=== PATIENT | female | born 1965 | race Caucasian/White ===

== ENCOUNTER 2017-03-05 10:46 | Emergency (ER) | payer OTHER ==
[~2017-03-05] VITALS: Ht 121.9 cm; Wt 38.6 kg
[~2017-03-05 10:46] MED LIST: ACEBUTCAFT PO; ALBU90OI6 INH; ALBU90OI61 INH; AMIT50 PO; BACL10 PO; BACL20; BACL20 PO; BACLOFEN; BELPTAB PO; BUSP5 PO; CARI350 PO; CIPR250 PO; CIPR500 PO; CLON1 PO; CLON2; CLON2 PO; COLC.6 PO; CRUTCH2 USE; Cipro500 MG PO; DICY20 PO; DIPATR PO; DIPH50 PO; DIVA250EC; DOCU100 PO; DOXY100 PO; ESCI20; ESCI20 PO; FAMO10 PO; GABA100 PO; GABA300 PO; GLATIRAMER; HYDACE10B; HYDACE10B PO; HYDACE5325 PO; HYDACE7.5 PO; INDO50 PO; KETO10 PO; LACT10SY PO; LAMO5 PO; LEVFLO250 PO; LEVFLO500; LEVFLO500 PO; LEVO750 PO; LISI5 PO; LITH300C PO; MEDICAL MARIJUANA; MEGE40SU PO; METH10; METH10 PO; METH40 PO; METO50ER PO; METPRE4DP PO; MULVITA PO; MULVITMINA; MULVITMINF PO; NITR100CA PO; OLAN5 PO; ONDA4ODT MM; OXYACE5T PO; POLY17UD PO; PREG25 PO; PROM25 PO; PROM25S PR; Percocet 5-3251 EACH PO; RANI150 PO; RXONDA4ODT MM; RXOXYACE PO; RXPROM25 PO; SUCR1 PO; THC; TRAACE PO; TRAM50 PO; TRAZ50 PO; TYLENOL SINUS; Therapeutic M1 EAC5 PO; Zestril PO; [UNRECOGNIZED DRUG - CODE]; [UNRECOGNIZED DRUG - OTHER]
== END 2017-03-05 11:54 | disposition left against medical advice (07) ==
LOC: ER 10:46
DX: Z53.21 Procedure and treatment not carried out due to patient leaving prior to being seen by health care provider (principal)
CPT/HCPCS: 99281

== ENCOUNTER → 2018-12-13 | Outpatient (CLI) | payer OTHER ==
[2018-12-13 12:24] LABS: BASOPHILS ABSOLUTE AUTO 0.05 K/mm3 (0.00-0.23); BASOPHILS PERCENT AUTO 1 % (0-2); EOSINOPHILS ABSOLUTE AUTO 0.16 K/mm3 (0.00-0.68); EOSINOPHILS PERCENT AUTO 2 % (0-6); Hematocrit 39.2 % (33.0-51.0); Hemoglobin 12.6 g/dL (11.5-16.0); IMMATURE GRAN ABSOLUTE AUTO 0.03 K/mm3 (0.00-0.10); IMMATURE GRAN PERCENT AUTO 0 % (0-1); LYMPHOCYTES ABSOLUTE AUTO 1.78 K/mm3 (0.84-5.20); LYMPHOCYTES PERCENT AUTO 20 % (21-46); MONOCYTES ABSOLUTE AUTO 0.71 K/mm3 (0.16-1.47); MONOCYTES PERCENT AUTO 8 % (4-13); Mean Corpuscular HGB 32.6 pg (26.0-34.0); Mean Corpuscular HGB Conc 32.1 g/dL (31.5-36.5); Mean Corpuscular Volume 102 fL (80-100); Mean Platelet Volume 9.4 fL (9.1-12.4); NEUTROPHILS ABSOLUTE AUTO 6.17 K/mm3 (1.96-9.15); NEUTROPHILS PERCENT AUTO 69 % (41-73); Platelet Count 270 K/mm3 (150-400); RDW Coefficient Variation 13.2 % (11.7-14.2); RDW Standard Deviation 50.1 fL (35.1-46.3); Red Blood Cell Count 3.86 M/mm3 (3.80-5.20)
[2018-12-13 12:39] LABS: Alanine Aminotransfer (ALT/SGP 22 U/L (12-78); Albumin, Blood 3.9 g/dL (3.4-5.0); Albumin/Globulin Ratio 1.2 (0.8-1.8); Alk Phos 79 U/L (50-136); Anion Gap 3 mmol/L (6-16); Aspartate Aminotrans (AST/SGOT 20 U/L (12-37); Bilirubin, Total 0.3 mg/dL (0.1-1.0); Blood Urea Nitrogen 26 mg/dL (8-24); Bun/Creatinine Ratio 60.2 (12.0-20.0); CHOL/HDL RATIO 3.3; CO2, Blood 26 mmol/L (21-32); Calcium, Blood 8.9 mg/dL (8.5-10.1); Chloride, Blood 113 mmol/L (98-108); Cholesterol 192 mg/dL (50-200); Creatinine, Blood 0.43 mg/dL (0.40-1.00); Globulin, Blood 3.3 g/dL (2.2-4.0); Glomerular Filtration Rate >60 (60-); Glucose, Blood 88 mg/dL (70-99); HDL Cholesterol 59 mg/dL (>39); Low Density Lipoprotein Chol 115 mg/dL (0-110); Potassium, Blood 3.8 mmol/L (3.5-5.5); Sodium, Blood 142 mmol/L (136-145); Total Protein, Blood 7.2 g/dL (6.4-8.2); Triglycerides 88 mg/dL (30-160); Very Low Density Lipoprot Chol 17 mg/dL (6-32)
== END | disposition home or self-care (01) ==
LOC: LAB 08:50 → LAB SHORT 08:50
PROVIDERS: Physician Assistant
DX: Z13.220 Encounter for screening for lipoid disorders (principal); D53.9 Nutritional anemia, unspecified
CPT/HCPCS: 80053; 80061; 85025

== ENCOUNTER 2020-01-04 18:14 | Emergency (ER) | payer OTHER ==
[~2020-01-04] VITALS: Ht 142.2 cm; Wt 39.5 kg
[2020-01-04 21:10] LABS: BASOPHILS ABSOLUTE AUTO 0.05 K/mm3 (0.00-0.23); BASOPHILS PERCENT AUTO 1 % (0-2); EOSINOPHILS ABSOLUTE AUTO 0.12 K/mm3 (0.00-0.68); EOSINOPHILS PERCENT AUTO 2 % (0-6); Hematocrit 40.8 % (33.0-51.0); IMMATURE GRAN ABSOLUTE AUTO 0.01 K/mm3 (0.00-0.10); IMMATURE GRAN PERCENT AUTO 0 % (0-1); LYMPHOCYTES ABSOLUTE AUTO 2.48 K/mm3 (0.84-5.20); LYMPHOCYTES PERCENT AUTO 32 % (21-46); MONOCYTES ABSOLUTE AUTO 0.65 K/mm3 (0.16-1.47); MONOCYTES PERCENT AUTO 9 % (4-13); Mean Corpuscular HGB 32.7 pg (26.0-34.0); Mean Corpuscular HGB Conc 31.9 g/dL (31.5-36.5); Mean Corpuscular Volume 103 fL (80-100); NEUTROPHILS ABSOLUTE AUTO 4.37 K/mm3 (1.96-9.15); NEUTROPHILS PERCENT AUTO 57 % (41-73); Platelet Count 337 K/mm3 (150-400); RDW Coefficient Variation 13.8 % (11.7-14.2); RDW Standard Deviation 52.9 fL (35.1-46.3); Red Blood Cell Count 3.97 M/mm3 (3.80-5.20); White Blood Cell Count 7.68 K/mm3 (4.00-11.30)
[2020-01-04 21:28] LABS: Alanine Aminotransfer (ALT/SGP 22 U/L (12-78); Albumin/Globulin Ratio 1.1 (0.8-1.8); Alk Phos 82 U/L (50-136); Anion Gap 3 mmol/L (6-16); Aspartate Aminotrans (AST/SGOT 21 U/L (12-37); Bilirubin, Total 0.2 mg/dL (0.1-1.0); Blood Urea Nitrogen 17 mg/dL (8-24); Bun/Creatinine Ratio 28.8 (12.0-20.0); CO2, Blood 27 mmol/L (21-32); Calcium, Blood 9.3 mg/dL (8.5-10.1); Chloride, Blood 111 mmol/L (98-108); Creatinine, Blood 0.59 mg/dL (0.40-1.00); Globulin, Blood 3.8 g/dL (2.2-4.0); Glomerular Filtration Rate >60 (60-); Glucose, Blood 77 mg/dL (70-99); Potassium, Blood 4.1 mmol/L (3.5-5.5); Sodium, Blood 141 mmol/L (136-145); Total Protein, Blood 7.8 g/dL (6.4-8.2); Troponin I <0.015 ng/mL (0.000-0.040)
== END 2020-01-04 21:27 | disposition left against medical advice (07) ==
LOC: ER 18:14
PROVIDERS: Emergency Medicine
DX: R03.0 Elevated blood-pressure reading, without diagnosis of hypertension (principal); Z53.21 Procedure and treatment not carried out due to patient leaving prior to being seen by health care provider
CPT/HCPCS: 36415; 80053; 84484; 85025; 93005; 93010

== ENCOUNTER 2021-03-10 03:12 | Emergency (ER) | payer OTHER ==
[~2021-03-10] VITALS: Ht 142.2 cm; Wt 39.5 kg
[2021-03-10] MEDS ORDERED: NEURONTIN300 MG PO (03:19)
[2021-03-10] MEDS ORDERED: CLONAZEPAM2 MG PO (03:19)
[2021-03-10 03:45] LABS: BASOPHILS ABSOLUTE AUTO 0.04 K/mm3 (0.00-0.23); BASOPHILS PERCENT AUTO 1 % (0-2); EOSINOPHILS PERCENT AUTO 0 % (0-6); Hematocrit 47.6 % (33.0-51.0); Hemoglobin 16.2 g/dL (11.5-16.0); Mean Corpuscular HGB 33.1 pg (26.0-34.0); Mean Corpuscular Volume 97 fL (80-100); Mean Platelet Volume 9.5 fL (9.1-12.4); Platelet Count 201 K/mm3 (150-400); RDW Coefficient Variation 12.8 % (11.7-14.2); RDW Standard Deviation 46.5 fL (35.1-46.3); White Blood Cell Count 7.84 K/mm3 (4.00-11.30)
[2021-03-10 03:46] LABS: IMMATURE GRAN ABSOLUTE AUTO 0.03 K/mm3 (0.00-0.10); IMMATURE GRAN PERCENT AUTO 0 % (0-1); LYMPHOCYTES ABSOLUTE AUTO 1.23 K/mm3 (0.84-5.20); LYMPHOCYTES PERCENT AUTO 16 % (21-46); MONOCYTES ABSOLUTE AUTO 0.85 K/mm3 (0.16-1.47); MONOCYTES PERCENT AUTO 11 % (4-13); NEUTROPHILS ABSOLUTE AUTO 5.69 K/mm3 (1.96-9.15); NEUTROPHILS PERCENT AUTO 73 % (41-73)
[2021-03-10 03:52] LABS: Source, Urine Clean Catch
[2021-03-10 03:57] LABS: Alanine Aminotransfer (ALT/SGP 72 U/L (12-78); Albumin, Blood 3.9 g/dL (3.4-5.0); Albumin/Globulin Ratio 0.9 (0.8-1.8); Alk Phos 82 U/L (50-136); Anion Gap 12 mmol/L (6-16); Aspartate Aminotrans (AST/SGOT 77 U/L (12-37); Bilirubin, Total 0.5 mg/dL (0.1-1.0); Blood Urea Nitrogen 35 mg/dL (8-24); Bun/Creatinine Ratio 48.7 (12.0-20.0); CO2, Blood 15 mmol/L (21-32); Calcium, Blood 9.4 mg/dL (8.5-10.1); Chloride, Blood 109 mmol/L (98-108); Creatinine, Blood 0.72 mg/dL (0.40-1.00); Globulin, Blood 4.3 g/dL (2.2-4.0); Glomerular Filtration Rate >60 (60-); Glucose, Blood 160 mg/dL (70-99); Potassium, Blood 4.4 mmol/L (3.5-5.5); Sodium, Blood 136 mmol/L (136-145); Total Protein, Blood 8.2 g/dL (6.4-8.2)
[2021-03-10 04:02] LABS: Bilirubin, Urine Neg (Neg); Blood, Urine 3+ (Neg); Glucose Qualitative, Urine Neg (Neg); Ketones, Urine Neg (Neg); Leukocyte Esterase, Urine 2+ (Neg); Nitrite, Urine Neg (Neg); Protein, Urine 3+ (Neg); Urobilinogen, Urine NORM (Normal)
[2021-03-10 04:15] LABS: Influenza A, PCR NEGATIVE (NEGATIVE); Influenza B, PCR NEGATIVE (NEGATIVE); Resp Syncytial Virus, PCR NEGATIVE (NEGATIVE)
[2021-03-10 04:17] LABS: Appearance, Urine Hazy (Clear); Color, Urine Yellow (P-Yellow)
[2021-03-10 04:21] LABS: SARS-Cov-2 (COVID-19) PCR, MMC POSITIVE (NEGATIVE)
[2021-03-10 04:31] LABS: Amorphous Light (0-Heavy); Bacteria Many /hpf; Mucus Light (0-Heavy); Red Blood Cells, Urine 0-2 /hpf (0-2); Squamous Epithelial Cells Rare /hpf (Few); White Blood Cells, Urine TNTC /hpf (0-5)
[2021-03-10] MEDS ORDERED: ONDA4ODT MM (06:39)
[2021-03-10] MEDS ORDERED: CEPH500 PO (06:39)
== END 2021-03-10 08:05 | disposition home or self-care (01) ==
LOC: ER 03:12
PROVIDERS: Student in an Organized Health Care Education/Training Program
DX: U07.1 COVID-19 (principal); N39.0 Urinary tract infection, site not specified; I10 Essential (primary) hypertension; Z88.0 Allergy status to penicillin; Z88.2 Allergy status to sulfonamides; Z88.1 Allergy status to other antibiotic agents; Z91.040 Latex allergy status; Z88.5 Allergy status to narcotic agent
CPT/HCPCS: 0241U; 36415; 51701; 80053; 81001; 85025; 87077; 87086; 87186; 96374-59; 96375-59; 96376-59; 99284-25; J0696; J2405

== ENCOUNTER 2022-02-23 10:03 | Emergency (ER) | payer OTHER ==
[~2022-02-23] VITALS: Ht 144.8 cm; Wt 54.4 kg
[~2022-02-23 10:03] MED LIST changes: +CEPH500 PO; +CLONAZEPAM2 MG PO; +NEURONTIN300 MG PO
[2022-02-23] MEDS ORDERED: CYCL10 PO (10:12)
[2022-02-23] MEDS ORDERED: OMEP20ER PO (10:12)
[2022-02-23] MEDS ORDERED: LISI20 PO (10:12)
[2022-02-23] MEDS ORDERED: OLAN10A MM (10:12)
[2022-02-23] MEDS ORDERED: CELEXA10 MG PO (10:13)
[2022-02-23 10:49] LABS: Albumin, Blood 3.7 g/dL (3.4-5.0); Albumin/Globulin Ratio 1.1 (0.8-1.8); Bilirubin, Total 0.2 mg/dL (0.1-1.0); Bun/Creatinine Ratio 39.9 (12.0-20.0); Calcium, Blood 8.7 mg/dL (8.5-10.1); Creatinine, Blood 0.53 mg/dL (0.40-1.00); Globulin, Blood 3.4 g/dL (2.2-4.0); Potassium, Blood 4.1 mmol/L (3.5-5.5); Total Protein, Blood 7.1 g/dL (6.4-8.2)
[2022-02-23 10:56] LABS: BASOPHILS ABSOLUTE AUTO 0.03 K/mm3 (0.00-0.23); BASOPHILS PERCENT AUTO 0 % (0-2); EOSINOPHILS ABSOLUTE AUTO 0.05 K/mm3 (0.00-0.68); EOSINOPHILS PERCENT AUTO 1 % (0-6); Hematocrit 39.1 % (33.0-51.0); Hemoglobin 13.1 g/dL (11.5-16.0); IMMATURE GRAN ABSOLUTE AUTO 0.04 K/mm3 (0.00-0.10); IMMATURE GRAN PERCENT AUTO 0 % (0-1); LYMPHOCYTES ABSOLUTE AUTO 1.15 K/mm3 (0.84-5.20); LYMPHOCYTES PERCENT AUTO 12 % (21-46); MONOCYTES ABSOLUTE AUTO 0.56 K/mm3 (0.16-1.47); MONOCYTES PERCENT AUTO 6 % (4-13); Mean Corpuscular HGB 32.8 pg (26.0-34.0); Mean Corpuscular HGB Conc 33.5 g/dL (31.5-36.5); Mean Corpuscular Volume 98 fL (80-100); Mean Platelet Volume 9.2 fL (9.1-12.4); NEUTROPHILS ABSOLUTE AUTO 7.84 K/mm3 (1.96-9.15); NEUTROPHILS PERCENT AUTO 81 % (41-73); Platelet Count 240 K/mm3 (150-400); RDW Coefficient Variation 12.5 % (11.7-14.2); RDW Standard Deviation 45.1 fL (35.1-46.3); Red Blood Cell Count 3.99 M/mm3 (3.80-5.20); White Blood Cell Count 9.67 K/mm3 (4.00-11.30)
[2022-02-23] MEDS ORDERED: MEDROL4 M1 PO (13:16)
== END 2022-02-23 14:42 | disposition home or self-care (01) ==
LOC: ER 10:03
PROVIDERS: Emergency Medicine
DX: G35 Multiple sclerosis (principal); I10 Essential (primary) hypertension; F17.210 Nicotine dependence, cigarettes, uncomplicated; Z88.0 Allergy status to penicillin; Z88.2 Allergy status to sulfonamides; Z88.8 Allergy status to other drugs, medicaments and biological substances; Z91.040 Latex allergy status; Z88.5 Allergy status to narcotic agent; Z79.899 Other long term (current) drug therapy
CPT/HCPCS: 36415; 70450; 80053; 85025; 93005; 93010; J1100; P9612

== ENCOUNTER 2022-02-25 12:40 | Inpatient (IN) | payer OTHER ==
[~2022-02-25] VITALS: Ht 152.4 cm; Wt 48.3 kg
[~2022-02-25 12:40] MED LIST changes: +CELEXA10 MG PO; +CYCL10 PO; +MEDROL4 M1 PO; +OLAN10A PO; +OMEP20ER PO; +ZESTRIL40 M1 PO
[2022-02-25 13:36] LABS: Source, Urine Foley catheter
[2022-02-25 13:39] LABS: Appearance, Urine Cloudy (Clear); Bilirubin, Urine Neg (Neg); Blood, Urine 2+ (Neg); Color, Urine Yellow (P-Yellow); Glucose Qualitative, Urine Neg (Neg); Ketones, Urine Neg (Neg); Leukocyte Esterase, Urine Neg (Neg); Nitrite, Urine Neg (Neg); Protein, Urine 2+ (Neg); Specific Gravity, Urine 1.015 (1.003-1.022); Urobilinogen, Urine NORM (Normal)
[2022-02-25 14:08] LABS: Bacteria Many /hpf; Hyaline Casts 0-2 /lpf (0-2); Squamous Epithelial Cells Mod /hpf (Few); Triple Phosphate Crystals Many /hpf
[2022-02-25 15:29] LABS: BASOPHILS ABSOLUTE AUTO 0.02 K/mm3 (0.00-0.23); BASOPHILS PERCENT AUTO 0 % (0-2); EOSINOPHILS PERCENT AUTO 0 % (0-6); Hematocrit 46.6 % (33.0-51.0); Hemoglobin 15.3 g/dL (11.5-16.0); IMMATURE GRAN ABSOLUTE AUTO 0.04 K/mm3 (0.00-0.10); IMMATURE GRAN PERCENT AUTO 0 % (0-1); LYMPHOCYTES ABSOLUTE AUTO 0.89 K/mm3 (0.84-5.20); LYMPHOCYTES PERCENT AUTO 7 % (21-46); MONOCYTES ABSOLUTE AUTO 0.55 K/mm3 (0.16-1.47); MONOCYTES PERCENT AUTO 5 % (4-13); Mean Corpuscular HGB 32.2 pg (26.0-34.0); Mean Corpuscular HGB Conc 32.8 g/dL (31.5-36.5); Mean Corpuscular Volume 98 fL (80-100); Mean Platelet Volume 9.2 fL (9.1-12.4); NEUTROPHILS ABSOLUTE AUTO 10.69 K/mm3 (1.96-9.15); NEUTROPHILS PERCENT AUTO 88 % (41-73); Platelet Count 272 K/mm3 (150-400); RDW Standard Deviation 46.3 fL (35.1-46.3); Red Blood Cell Count 4.75 M/mm3 (3.80-5.20); White Blood Cell Count 12.19 K/mm3 (4.00-11.30)
[2022-02-25 15:58] LABS: Albumin, Blood 4.4 g/dL (3.4-5.0); Albumin/Globulin Ratio 1.1 (0.8-1.8); Bilirubin, Total 0.4 mg/dL (0.1-1.0); Bun/Creatinine Ratio 44.3 (12.0-20.0); Calcium, Blood 9.9 mg/dL (8.5-10.1); Creatinine, Blood 0.66 mg/dL (0.40-1.00); Globulin, Blood 4.1 g/dL (2.2-4.0); Potassium, Blood 4.2 mmol/L (3.5-5.5); Total Protein, Blood 8.5 g/dL (6.4-8.2)
[2022-02-25 23:02] LABS: CHOL/HDL RATIO 5.3; Cholesterol 233 mg/dL (50-200); HDL Cholesterol 44 mg/dL (>39); LDL/HDL RATIO 3.8; Low Density Lipoprotein Chol 165 mg/dL (0-110); Triglycerides 119 mg/dL (30-160); Very Low Density Lipoprot Chol 23 mg/dL (6-32)
[2022-02-26 04:11] LABS: BASOPHILS ABSOLUTE AUTO 0.02 K/mm3 (0.00-0.23); BASOPHILS PERCENT AUTO 0 % (0-2); EOSINOPHILS ABSOLUTE AUTO 0.01 K/mm3 (0.00-0.68); EOSINOPHILS PERCENT AUTO 0 % (0-6); Hematocrit 40.8 % (33.0-51.0); Hemoglobin 13.9 g/dL (11.5-16.0); IMMATURE GRAN ABSOLUTE AUTO 0.05 K/mm3 (0.00-0.10); IMMATURE GRAN PERCENT AUTO 0 % (0-1); LYMPHOCYTES ABSOLUTE AUTO 0.77 K/mm3 (0.84-5.20); LYMPHOCYTES PERCENT AUTO 5 % (21-46); MONOCYTES ABSOLUTE AUTO 0.92 K/mm3 (0.16-1.47); MONOCYTES PERCENT AUTO 6 % (4-13); Mean Corpuscular HGB 32.9 pg (26.0-34.0); Mean Corpuscular HGB Conc 34.1 g/dL (31.5-36.5); Mean Corpuscular Volume 97 fL (80-100); Mean Platelet Volume 9.1 fL (9.1-12.4); NEUTROPHILS PERCENT AUTO 88 % (41-73); Platelet Count 267 K/mm3 (150-400); RDW Coefficient Variation 13.2 % (11.7-14.2); Red Blood Cell Count 4.23 M/mm3 (3.80-5.20); White Blood Cell Count 14.67 K/mm3 (4.00-11.30)
[2022-02-26 04:26] LABS: Calcium, Blood 9.6 mg/dL (8.5-10.1); Creatinine, Blood 0.71 mg/dL (0.40-1.00)
--- NOTE | 2022-02-26 06:04 | NUR ---
SHIFT SUMMARY NONVERBAL, RESPONDS TO VERBAL AND PAINFUL STIMULI. R. ARM CONTRACTURE. BRUISING NOTED T/O BUE/BLE. SPO2 >92% ON RA. TELE ST 110-120S. HYPERTENSIVE T/O SHIFT, PRN HYDRALAZINE GIVEN FOR SYSTOLIC GREATER THAN 170 PER ORDER. PT UNABLE TO MANAGE SECRETIONS, Q2 AND PRN ORAL CARE. RIVERA PATENT AND DRAINING CLEAR YELLOW URINE. BED IN LOWEST POSITION WITH CALL LIGHT IN REACH. WILL CONTINUE TO MONITOR AND REPORT TO ONCOMING RN.
[2022-02-26] MEDS ORDERED: BUSP10 PO (09:22)
[2022-02-26] MEDS ORDERED: IBUP400 PO (09:25)
--- NOTE | 2022-02-26 10:11 | NUR ---
AM NOTE: PATIENT NONVERBAL AT THIS TIME. NOT FOLLOWING MOST COMMANDS. PUPILS REACTIVE. TRACKING FOR BRIEF MOMENTS. NO MOVEMENT TO BLE. LEFT HAND/ARM WITH OCCASIONAL MOVEMENTS. ABLE TO MANAGER BIOSTATISTICS VERY WEAKLY WITH LEFT SIDE. RIGHT ARM/HAND CONTRACTURE WITH STIFFNESS. NOT ABLE TO SHAKE HEAD YES OR NO. ON ROOM AIR, LUNGS SOUNDING COARSE WITH OCCASIONAL MOIST COUGH. SUCTIONING NEEDED. Q4 ORAL CARE. TELE SHOWING SINUS TACH WITH HR 110-120'S. BP STABLE. NO SIGNS OF EDEMA. LR INFUSING AT 50 ML/HR PER EMAR. SPEECH THERAPY ORDERS IN PLACE. WILL ATTEMPT TO SEE THIS AFTERNOON. RIVERA CATH IN PLACE WITH CLEAR/YELLOW URINE WITH SMALL AMOUNTS OF SEDIMENT. CATH CARE COMPLETED THIS AM. ATTENDS IN PLACE. SKIN OVERALL C/D/I. SCATTERED BRUISING AND HEALED SCARS. REDNESS TO BILATERAL FEET/TOES. SPOKE WITH CYNDIE IN PHONE THIS AM AND PROVIDED UPDATE. STATES PATIENT IS NORMALLY FAIRLY IND AT HOME, WALKING AND DOING MOST ADL'S. PHONE NUMBER GIVEN TO DR. BISHOP FOR UPDATE. MED REC COMPLETED WITH . Q2 TURNS. BEDREST AT THIS TIME.
--- NOTE | 2022-02-26 10:48 | NUR ---
CALL PLACED TO CYNDIE TO ASK IF HE WAS PLANNING ON VISITING TODAY. EXPRESSED THAT HE WAS TRYING TO GET RIDE IN TO VISIT. THIS RN EXPLAINED CVA AND PATIENT STATUS WELL PALLIATIVE CARE NURSES. WILLING TO TALK WITH PALLIATIVE CARE. STATES HIM AND HIS HAVE NOT HAD PRIOR CONVERSATIONS ABOUT WHAT TYPE OF CARE/TREATMENTS SHE WOULD WANT IF THIS WHERE TO HAPPEN. STATES PATIENT HAS TWO SISTERS (SHARON AND KRYSTLE) AND A FOSTER MOM (ЕКАТЕРИНА) THAT ARE ALL AWARE OF WHAT HAS HAPPENED AND THAT PATIENT IS IN [facility]OPSITAL. PALLIATIVE CARE TEAM CALLED AND THIS RN SPOKE WITH YOANDY AND PROVIDED UPDATE ON PATIENT SITUATION AND SCENERIO. PLAN FOR THIS RN TO CALL YOANDY OR DONNY WHEN ARRIVES. SPEECH THERAPY TO SEE PATIENT AROUND 1330.
--- NOTE | 2022-02-26 15:08 | NUR ---
CALEB CAREGIVER FROM [facility] CALLED AND UPDATE PROVIDED. CALEB STATES PATIENT IS NORMALLY VERY OUTGOING AND ALERT. NORMALLY HANGSOUT WITH DOGS AT HOME AND IS VERY IND. STATES SHE DRINKS ALOT OF COFFEE AND SMOKES WEED BUT DOES NOT DRINK ALCOHOL. CALEB ALSO STATES PATIENT RECEIVES 20 HOURS OF IN HOME CAREGIVING THAT THEY SPREAD OUT ACROSS 6 DAYS. PHONE TO REACH [facility] IS [phone]. SPEECH THERAPY IN TO SEE PATIENT. FAILED SPEECH EVAL. REMAINS NPO. CALL PLACED TO DR. BISHOP TO UPDATE. NO NEW ORDERS FOR THIS RN TO PLACE. LR INCREASED TO 75ML/HR. ECHO BEING DONE AT THIS TIME. MICRO CALLED THIS RN TO REPORT +BLOOD CULTURE. REPORTED TO DR. BISHOP. NO NEW ORDERS FOR THIS RN.
--- NOTE | 2022-02-26 18:05 | NUR ---
SHIFT SUMMARY: NO ACUTE CHANGES THROUHGOUT SHIFT. PATIENT SMILING MORE AND RIGTH FACIAL DROOP NOTICED MORE THROUGHOUT DAY WITH FACIAL EXPRESSIONS. USING LEFT SIDE VERY LITTLE. WEAK OVERALL. MOVING HEAD/NECK AND LEFT EXTREMITITES. PT/OT TODAY. STILL NONVERBAL, OCCASIONALLY MAKING NOISES. REMAINS ON ROOM AIR. VITAL STABLE. TELE CONTINUES TO SHOW ST. SBP 140-160'S. LEVAQUIN INFUSING AT THIS TIME. LR AT 75ML/HR. RIVERA CATH DRAINING CLEAR/YELLOW URINE. DRAINED 675ML AT START OF SHIFT THIS AM. VERY MINIMAL OUTPUT SINCE. REMAINS NPO. NO BM. ATTENDS IN PLACE. CALLED 3 TIMES TODAY TO UPDATE, SEE PREVIOUS NOTES. SPOKE WITH CAREGIVER CALEB WELL. PALLIATIVE CARE BY AND UPDATED ON CONVERSATIONS WITH . NOT IN TO VISIT THIS SHIFT. Q4 ORAL CARE AND NEEDED. SUCTIONING THICK YELLOW SPUTUM. CALL LIGHT IN REACH. BED ALARM IN PLACE.
--- NOTE | 2022-02-26 22:21 | NUR ---
ASSUMPTION OF CARE THIS RN ASSUMED CARE OF PATIENT AT 1900. REPORT TAKEN FROM OTTO DIAZ. PATIENT ALERT AND APPEARS TO BE ORIENTED TO SELF. NONVERBAL AND UNABLE TO ANSWER QUESTIONS BUT DID APPEAR TO SLOWLY NOD HEAD YES/NO TO SIMPLE QUESTIONS. FOLLOWING SIMPLE COMMANDS. HTN NOTED AFTER SHIFT CHANGE; MEDICATED PER EMAR WITH GOOD RESULTS; SBP 130-140'S AT THIS TIME. ST ON THE MONITOR WITH HR 110-120'S. AFEBRILE. ON RA WITH SPO2 >92%. RIVERA CATHETER PATENT AND DRAINING TO GRAVITY. Q2HR REPOSITIONING. RIGHT DEFICITS AND RIGHT FACIAL DROOP NOTED. PATIENT IS ABLE TO MOVE LEFT EXTREMETIES BUT IS WEAK AND SLOW WITH MOVEMENTS. NPO AT THIS TIME. BED IN LOWEST POSITION AND CALL LIGHT WITHIN REACH. THIS RN WILL CONTINUE TO MONITOR AND PROVIDE INERVENTIONS NEEDED/ORDERED. SEE ASSESSMENT.
[2022-02-27 03:41] LABS: BASOPHILS ABSOLUTE AUTO 0.01 K/mm3 (0.00-0.23); BASOPHILS PERCENT AUTO 0 % (0-2); EOSINOPHILS PERCENT AUTO 0 % (0-6); Hematocrit 39.7 % (33.0-51.0); Hemoglobin 12.9 g/dL (11.5-16.0); IMMATURE GRAN ABSOLUTE AUTO 0.04 K/mm3 (0.00-0.10); IMMATURE GRAN PERCENT AUTO 0 % (0-1); LYMPHOCYTES ABSOLUTE AUTO 0.97 K/mm3 (0.84-5.20); LYMPHOCYTES PERCENT AUTO 8 % (21-46); MONOCYTES ABSOLUTE AUTO 1.16 K/mm3 (0.16-1.47); MONOCYTES PERCENT AUTO 10 % (4-13); Mean Corpuscular HGB 32.3 pg (26.0-34.0); Mean Corpuscular HGB Conc 32.5 g/dL (31.5-36.5); Mean Corpuscular Volume 99 fL (80-100); Mean Platelet Volume 9.3 fL (9.1-12.4); NEUTROPHILS ABSOLUTE AUTO 9.84 K/mm3 (1.96-9.15); NEUTROPHILS PERCENT AUTO 82 % (41-73); Platelet Count 231 K/mm3 (150-400); RDW Coefficient Variation 13.8 % (11.7-14.2); RDW Standard Deviation 50.3 fL (35.1-46.3); White Blood Cell Count 12.02 K/mm3 (4.00-11.30)
[2022-02-27 04:17] LABS: Albumin, Blood 3.4 g/dL (3.4-5.0); Anion Gap 7 mmol/L (6-16); Blood Urea Nitrogen 36 mg/dL (8-24); Bun/Creatinine Ratio 53.6 (12.0-20.0); CO2, Blood 16 mmol/L (21-32); Calcium, Blood 9.3 mg/dL (8.5-10.1); Chloride, Blood 130 mmol/L (98-108); Creatinine, Blood 0.67 mg/dL (0.40-1.00); Glomerular Filtration Rate 101 (60-); Glucose, Blood 120 mg/dL (70-99); Phosphorus, Blood 2.9 mg/dL (2.5-4.9); Potassium, Blood 3.7 mmol/L (3.5-5.5); Sodium, Blood 153 mmol/L (136-145)
--- NOTE | 2022-02-27 04:46 | NUR ---
SHIFT SUMMARY NO ACUTE EVENTS OVERNIGHT. PATIENT HAS BEEN ABLE TO USE CALL LIGHT/REMOTE DURING THIS SHIFT. APPEARS TO OCCASIONALLY NOD YES/NO TO SIMPLE QUESTIONS. CONTINUES TO BE NONVERBAL. BP STABLE AT THIS TIME; MEDICATING PER EMAR FOR HTN. LR INFUSING AT 75MLS/HR. REPOSITIONING Q2HRS. ATTENDS DRY. RIVERA CATHETER DRAINING VIA GRAVITY. ORAL CARE DONE Q4HRS. BED IN LOWEST POSITION AND CALL LIGHT WITHIN REACH. SEE ASSESSMENT AND PREVIOUS NOTE. THIS RN WILL CONTINUE TO MONITOR UNTIL SHIFT CHANGE AT 0700.
[2022-02-27 08:24] LABS: Source, Urine Foley catheter
[2022-02-27 08:45] LABS: Appearance, Urine Clear (Clear); Bilirubin, Urine Neg (Neg); Blood, Urine 2+ (Neg); Color, Urine Yellow (P-Yellow); Glucose Qualitative, Urine Neg (Neg); Ketones, Urine 2+ (Neg); Leukocyte Esterase, Urine Neg (Neg); Nitrite, Urine Neg (Neg); Protein, Urine 2+ (Neg); Urobilinogen, Urine NORM (Normal)
[2022-02-27 09:03] LABS: Bacteria Rare /hpf; Squamous Epithelial Cells Rare /hpf (Few)
--- NOTE | 2022-02-27 09:27 | NUR ---
AM NOTE: PATIENT ALERT THIS AM, OPENING EYES UPON ENTERING ROOM. SMILING MORE AND STARTING TO USE CALL LIGHT WITH LEFT HAND. RIGHT FACIAL DROOP. PUPILS EQUAL AND REACTIVE. TRACKING WITH EYES. LEFT SIDED WEAKNESS. Q2 TURNING. ON ROOM AIR, SATING ABOVE 94%. LUNGS SOUNDING COARSE, BUT IMPROVED FROM YESTERDAY. OCCASIONAL MOIST COUGH, SUCTION AT BEDSIDE. Q4 ORAL CARE AND NEEDED. TELE SHOWING SINUS TACH WITH HR 100-120'S. BP ELEVATED THIS AM, PRN HYDRALZINE GIVEN WITH GOOD RELIEF. DOES NOT APPEAR TO BE IN ANY CHEST PAIN/DISCOMFORT. PPP. BOWEL TONES PRESENT. ATTENDS IN PLACE. REMAINS NPO. PLAN FOR SPEECH EVAL TODAY. UPON SHIFT START PATIENT NOTED TO HAVE LARGE WET ATTENDS AND EMPTY RIVERA CATH. BLADDER SCAN DONE AND NEW RIVERA PLACED, DRAINING 800ML. NEW URINE SAMPLE SENT PER PROCLAUREL. DR. BISHOP BY THIS AM. THIS RN UPDATED ON CALLS TO PRIOR DAY, PALLIATIVE CARE AND AM SODIUM LABS. NO NEW ORDERS FOR THIS RN TO PLACE. CALL PLACED TO CYNDIE, PATIENT . PROVIDED UPDATE. CYNDIE STATES HE THINKS HE HAS A RIDE TODAY AND WILL BE ABLE TO COME IN AND VISIT. PLAN FOR CYNDIE TO MEET WITH PALLIATIVE CARE UPON ARRIVAL AND IF CYNDIE IS NOT ABLE TO COME IN, PALLIATIVE CARE TO CALL .
--- NOTE | 2022-02-27 10:22 | NUR ---
Case conference and review of EMR with plan to meet with when he arrives to visit today. RN to contact me upon his arrival to room.
--- NOTE | 2022-02-27 13:44 | NUR ---
[place] AT BEDSIDE. PALLIATIVE CARE RN RANDAL CALLED TO UPDATE.
[2022-02-27 14:30] LABS: Base Excess Venous -7.1 mmol/L; Bicarbonate Venous 19.8 mmol/L (24.0-30.0); PCO2 Venous 25.9 mmHg (38-42); pH Blood Venous 7.43 (7.34-7.37)
--- NOTE | 2022-02-27 14:35 | NUR ---
DR. BISHOP CALLED TO UPDATE ON VBG RESULTS. NO NEW ORDERS FOR THIS RN TO PLACE. AND PALLIATIVE CARE RN RANDAL AT BEDSIDE AT THIS TIME. 1400 BP ELEVATED, PRN HYDRALAZINE GIVEN.
--- NOTE | 2022-02-27 14:39 | NUR ---
[employer] CALLED, FOR UPDATE. PERMISSION FROM PATIENT TO SPEAK WITH THEM. UPDATE PROVIDED.
--- NOTE | 2022-02-27 14:55 | NUR ---
I met with pt's SO at the bedside. Pt is smiling at him at times, able to track and make eye contact but is nonverbal and is not indicating yes/no with head movement either. SO Christopher attempted to have pt squeeze his hand in response to some of his questions but pt was not able to. SO had contacted a close friend to confirm what he understood from Susan previously, that she would not want "life support" to prolong her life. We reviewed what life support meant and other life sustaining treatmens. Christopher is clear that he believes she would not want CPR or intubation but he wants Susan to be able to tell us that. He is struggling with decision making currently. He was clear that she would not want termite treater helper tube feeding but thought she would be agreeable to short term IV or NG feedings while recovering from an illness. Pt is normally ambulatory, conversant and able to swallow and eat. 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 Christopher states that she has daily chronic pain and is prescribed gabapentin and flexeril as part of her daily medication regime. She is not currently demonstrating nonverbal indicators of mod to severe pain but does not appear completely comfortable either. I could not get any reliable response with conversation. I planned with Christopher to reassess tomorrow and talk to him again by phone for update and ongoing conversation re: advanced care planning. He does not drive and will not be able to come in to visit daily. If this is pt's new baseline, she will need much more care in the home or possibly placement. Discussed pt status with CM earlier today also. Reviewed my conversation with pt/SO with her RN after my visit.
--- NOTE | 2022-02-27 18:05 | NUR ---
SHIFT SUMMARY: NO ACUTE CHANGES, SEE PREVIOUS NOTES THROUGHOUT DAY. PATIENT REMAINS MEDICAL STATUS WITH NO TELE. CYNDIE IN AND ABLE TO MEET WITH PALLIATIVE CARE. THIS RN SPOKE WITH KRYSTLE, PATIENT SISTER ON PHONE AND PROVIDED UPDATE. ORAL CARE Q4. ABX INFUSED THIS SHIFT. D5 INFUSING PER EMAR. Q2 TURNING. MEDICATED X2 WITH PRN HYDRALAZINE. PATIENT WARM TO TOUCH THIS EVENING BUT NO TEMP. RIVERA CATH REMAINS PATENT AND DRAINING CLEAR/YELLOW URINE. CONTINUES TO SMILE. WILL CONTINUE TO MONITOR AND REPORT OFF.
--- NOTE | 2022-02-27 21:07 | NUR ---
ASSUMPTION OF CARE THIS RN ASSUMED CARE OF PATIENT AT 1900. REPORT TAKEN FROM OTTO DIAZ. PATIENT IS ALERT AND ANSWERING YES/NO QUESTIONS APPROPRIATELY, FOLLOWING SIMPLE COMMANDS, AND APPEARS TO BE ORIENTED TO SELF. PATIENT NONVERBAL BUT SMILING FREQUENTLY AT THIS RN. RIGHT FACIAL DROOP AND RIGHT SIDE DEFICITS NOTED. VITALS STABLE. RIVERA CATHETER DRAINING TO GRAVITY. D5 INFUSING PER EMAR. REPOSITIONING Q2HRS WITH ORAL CARE Q4HRS. BED IN LOWEST POSITION AND CALL LIGHT WITHIN REACH. THIS RN WILL REVIEW CHART AND CONTINUE TO PROVIDE INTERVENTIONS NEEDED/ORDERED DURING THIS SHIFT.
--- NOTE | 2022-02-28 04:53 | NUR ---
GERMAIN ARRIVED FROM [facility] 10 JUST AFTER MIDNIGHT. SHE DISPLAYS NO SIGNS OR SYMPTOMS OF PAIN OR DISCOMFORT. EASILY ASSISTING IN REPOSITIONING WITH THE LEFT SIDE EXTREMITIES. GERMAIN WAS ABLE TO TURN HER HEAD EVER SO SLIGHTLY TO SEE THE PICTURE THAT WENT WITH THE MUSIC ON HER TV. BLOOD PRESSURES WERE SLIGHTLY HIGH, BUT WITHIN PARAMETERS PER LAST NOTE FROM DR PINTO.
[2022-02-28 06:07] LABS: BASOPHILS ABSOLUTE AUTO 0.02 K/mm3 (0.00-0.23); BASOPHILS PERCENT AUTO 0 % (0-2); EOSINOPHILS ABSOLUTE AUTO 0.01 K/mm3 (0.00-0.68); EOSINOPHILS PERCENT AUTO 0 % (0-6); Hematocrit 36.1 % (33.0-51.0); Hemoglobin 11.9 g/dL (11.5-16.0); IMMATURE GRAN ABSOLUTE AUTO 0.04 K/mm3 (0.00-0.10); IMMATURE GRAN PERCENT AUTO 0 % (0-1); LYMPHOCYTES ABSOLUTE AUTO 1.47 K/mm3 (0.84-5.20); LYMPHOCYTES PERCENT AUTO 14 % (21-46); MONOCYTES ABSOLUTE AUTO 1.02 K/mm3 (0.16-1.47); MONOCYTES PERCENT AUTO 10 % (4-13); Mean Corpuscular Volume 100 fL (80-100); Mean Platelet Volume 9.3 fL (9.1-12.4); NEUTROPHILS ABSOLUTE AUTO 8.01 K/mm3 (1.96-9.15); NEUTROPHILS PERCENT AUTO 76 % (41-73); Platelet Count 222 K/mm3 (150-400); RDW Coefficient Variation 13.9 % (11.7-14.2); RDW Standard Deviation 51.3 fL (35.1-46.3); Red Blood Cell Count 3.61 M/mm3 (3.80-5.20); White Blood Cell Count 10.57 K/mm3 (4.00-11.30)
[2022-02-28 06:28] LABS: Anion Gap 5 mmol/L (6-16); Blood Urea Nitrogen 27 mg/dL (8-24); Bun/Creatinine Ratio 46.6 (12.0-20.0); CO2, Blood 20 mmol/L (21-32); Calcium, Blood 8.6 mg/dL (8.5-10.1); Chloride, Blood 124 mmol/L (98-108); Creatinine, Blood 0.58 mg/dL (0.40-1.00); Glomerular Filtration Rate 105 (60-); Glucose, Blood 145 mg/dL (70-99); Phosphorus, Blood 2.4 mg/dL (2.5-4.9); Potassium, Blood 3.4 mmol/L (3.5-5.5); Sodium, Blood 149 mmol/L (136-145)
--- NOTE | 2022-02-28 13:21 | NUR ---
Attempted visit and pt napping at that time, this am. Case conferenced with pt's RN. Awaiting results of ST visit today and understand from RN that pt was able to follow commands and work with PT/OT today. She is able to indicate yes/no if she is hurting. I called and gave update. Reviewed need for nutritional supplementation. He again states he feels that temporary tube feeding would be ok but he would prefer the least invasive option. Discussed that an NG may impair her ability to recover her swallow. Discussed peg tube placement also if recommended by /. He states pt's sister, Mignon, is arriving today from [place]. He is appreciative of this and having her input in regard to medical decision making. I will try to meet with sister today or tomorrow and also assess whether pt can indicate to us what she would want. I would like a family member present with pt also for that discussion so we have a better idea of her understanding and answers.
--- NOTE | 2022-02-28 14:50 | NUR ---
Reviewed pt's current status and afternoon ST visit with ST. Please see ST plan. Reviewed options of peg vs NG/dobhoff if needed. ST states ng/dobhoff would not impair swallow recovery if that option is prefered by family to give pt time to recover and receive adequate nutritional support during stroke recovery. Will cont to follow for support and assist with care planning as pt's status evolves.
--- NOTE | 2022-02-28 18:50 | NUR ---
SHIFT SUMMARY: PATIENT NONVERBAL. MAKE AN EYE CONTACT AND RESPOND TO VERBAL STIMULI. ANSWER TO QUESTIONS BY SQUEEZING THIS RN'S HAND. MILD SENSATION TO R UPPER AND LOWER EXTREMITIES WHEN STROKING THE HANDS AND BOTTOM OF FOOT. LEFT UPPER AND LOWER EXTREMITIES SENSATIONS AND STRENGTH INTACT BUT WEAK. PATIENT WIDE AWAKE TODAY. PARTICIPATE c PT/OT EARLIER THIS AM. ST CAME AND SAW PATIENT THIS PM, STILL NPO. PER ST PLAN TO HAVE BARIUM SWALLOW EVAL ON THURSDAY. PER ST IT'S OKAY FOR PATIENT TO HAVE DOBHOFF PLACEMENT OR TPN/PPN NUTIRIONAL SUPPORT. THIS RN COMMUNICATE c DR. BISHOP. PER DR. BISHOP TO PLAN DOBHOFF PLACEMENT TOMORROW 03/01/22. POWERGLIDE TO GIO INFUSING DEXTROSE 5% AT 75 MLS/HR. RIVERA CATH WAS IRREGATED X1 TODAY. RIVERA PATENT DRAINING TO GRAVITY. VITAL SIGNS REVIEWED. ORAL CARE, SUCTIONED AND REPOSITIONED T/O SHIFT. BED ALARM ON FOR SAFETY. CALL LIGHT IN REACH.
[2022-03-01 05:09] LABS: BASOPHILS ABSOLUTE AUTO 0.02 K/mm3 (0.00-0.23); BASOPHILS PERCENT AUTO 0 % (0-2); EOSINOPHILS ABSOLUTE AUTO 0.08 K/mm3 (0.00-0.68); EOSINOPHILS PERCENT AUTO 1 % (0-6); Hematocrit 39.8 % (33.0-51.0); Hemoglobin 12.8 g/dL (11.5-16.0); IMMATURE GRAN ABSOLUTE AUTO 0.06 K/mm3 (0.00-0.10); IMMATURE GRAN PERCENT AUTO 1 % (0-1); LYMPHOCYTES ABSOLUTE AUTO 1.49 K/mm3 (0.84-5.20); LYMPHOCYTES PERCENT AUTO 13 % (21-46); MONOCYTES ABSOLUTE AUTO 0.83 K/mm3 (0.16-1.47); MONOCYTES PERCENT AUTO 8 % (4-13); Mean Corpuscular HGB 32.1 pg (26.0-34.0); Mean Corpuscular HGB Conc 32.2 g/dL (31.5-36.5); Mean Corpuscular Volume 100 fL (80-100); Mean Platelet Volume 9.6 fL (9.1-12.4); NEUTROPHILS ABSOLUTE AUTO 8.66 K/mm3 (1.96-9.15); NEUTROPHILS PERCENT AUTO 78 % (41-73); Platelet Count 224 K/mm3 (150-400); RDW Coefficient Variation 13.2 % (11.7-14.2); RDW Standard Deviation 49.1 fL (35.1-46.3); Red Blood Cell Count 3.99 M/mm3 (3.80-5.20); White Blood Cell Count 11.14 K/mm3 (4.00-11.30)
[2022-03-01 05:41] LABS: Albumin, Blood 2.9 g/dL (3.4-5.0); Anion Gap 10 mmol/L (6-16); Blood Urea Nitrogen 14 mg/dL (8-24); Bun/Creatinine Ratio 28.5 (12.0-20.0); CO2, Blood 18 mmol/L (21-32); Calcium, Blood 8.4 mg/dL (8.5-10.1); Chloride, Blood 113 mmol/L (98-108); Creatinine, Blood 0.49 mg/dL (0.40-1.00); Glomerular Filtration Rate 109 (60-); Glucose, Blood 124 mg/dL (70-99); Potassium, Blood 3.1 mmol/L (3.5-5.5); Sodium, Blood 141 mmol/L (136-145)
--- NOTE | 2022-03-01 06:54 | NUR ---
GERMAIN WAS MUCH MORE ALERT OVERNIGHT. ABLE TO TURN HER HEAD EVER SO SLIGHTLY TO THE RIGHT. SQUEEZES AND LETS GO WITH HER LEFT HAND TO INDICATE YES OR NO. PATIENT HAD JUST OVER 1000ML CLEAR YELLOW URINE FROM RIVERA CATHETER. HER ONLY DIFFICULTY IS HER HUGE AMOUNT OF SECRETIONS THAT REQUIRE CONSTANT SUCTIONING.
--- NOTE | 2022-03-01 09:00 | NUR ---
PT HERE WITH ISCEMIC STROKE, SOME SMILE GIVEN WITH LEFT MOUTH. SOME TERESA MOVEMENT IN LEFT ARM AND HAND. ABLE TO SCRATCH HEAD. ABLE TO GRANS MY HAND AND SQUEEZE SOME Y/N ANSWERS. RECOGNIZED SISTER WHEN IN ROOM. SISTER STATES SOME IMPROVEMENT IN OVERALL. H/R REG, NO MURMUR NOTED. NO TELE. LUNGS CLEAR, RESP EASY, UNLABORED. DOES NOT APPEAR ABLE TO COUGH AND SWALLOW. SUCTIONING REGULARLY. DISCUSSED ATRPINE DROPS AND SCAPOLAMINE PATCH. DR STATES TO DECIDE IF APPROP. BT HYPO. UNABLE TO TELL ME LAST BM. VOIDS INCONT. TURN Q2. BED IN LOW POSITIOIN, CALL LITE IN REACH, BED ALARM ON FOR SAFETY. UPDATED DR RAY ON K+ LEVEL 3.1
--- NOTE | 2022-03-01 10:30 | NUR ---
Lengthy visit with pt and her sister, Mignon, at bedside. Mignon's number is [phone]. Pt is clearly happy to have sister present and when I arrived, Mignon was hugging Susan for a long time. Mignon lives in [place] and must return now. I reviewed plan of care and status (per and ST notes) with Mignon and asked for her help in confirming what Susan's wishes might be in regard to long/short term tube feeding, life support, code status. , Christopher, had requested that I review all of this with Mignon, to confirm what he felt pt's wishes would be. In agreement with Christopher, Mignon feels that pt would be ok with short term tube feeding but would probably choose not to continue with half-way tube feeding if she were unable to regain swallow after restorative rehab efforts. She states pt would not want to live "dependent on machines" but at this time "would want to give it her best shot". Mignon and I clarified this to mean that at this time, Susan would prefer to remain a full code and pursue full treatment for acute and chronic issues. If time and current treatment indicate that recovery is not possible, pt would not want to remain dependent on a ventilator, want repeated CPR or intermodal truck driver tube feedings. Both Mignon and I directed this conversation and questions to patient, who was awake, alert and maintaining eye contact t/o and indicated as best she could, agreement with Mignon's restating/clarifying pt's wishes. Mignon wanted staff and care managers to know they could call her for assist and support to Christopher for decision making and d/c planning. I asked if she and Christopher could discuss if rehab facilities in [place] would be desireable so that her sister could visit and advocate for pt regularly. does not drive or have regular transportation and has stated this as a barier for him and concern for her being in a facility without having family visits. Sister states she would very much like her sister close by in [place] and that she may even be able to have her come to her home after Rehab if needed. She will discuss both with Susan and Christopher. Contact numbers for nurses, [facility] and train operations manager provided to Mignon for f/u early next week for ongoing planning and coordination of care. Mignon states that Christopher is very overwhelmed and I have noted this in my conversations with him also. He has asked that Mignon be included in d/c planning, care planning and decision making for support to Susan and himself.
--- NOTE | 2022-03-01 14:13 | NUR ---
1000 SISTER IN TO VISIT WITH PT. STATES SHE SEES SOME IMPROVEMENT. ABLE TO MOVE LEFT HAND BETTER. STATES SHE SQUEEZES HAND Y/N WITH SOME SMILE ON LEFT. STATES SHE FEELS SOME BETTER. 1100 CALLED. RELAYED INFO TO HIM FROM SISTER.
--- NOTE | 2022-03-01 18:36 | NUR ---
PT SISTER IN TO SEE THIS AM. STATES SHE FEELS PT SLIGHT IMPROVEMENT. PT IS ABLE TO GRASP HAND AND SQUEEZE TO ANSWER Y/N QUESTIONS. HAS FULL RT SIDE FLACID. NO CHANGES NOTED FOR PT TODAY. SUCTIONED AND TURNED REGULARLY. BED IN LOW POSITIOIN, CALL LITE IN REACH. BED ALARM ON FOR SAFETY
--- NOTE | 2022-03-02 07:22 | NUR ---
VERY LITTLE CHANGE FOR GERMAIN OVERNIGHT. SHE IS STILL VERY SUCTION DEPENDENT FOR HER ONGOING SECRETIONS. SHE GIVES NO INDICATION OF DISCOMFORT, AND IS ACTUALLY ATTEMPTING TO HOLD THE SUCTION TOOTHBRUSH AND ATTEMPTED TO SCRUB HER TEETH ON THE LEFT SIDE. STILL NO BOWEL MOVEMENT. PATIENT REMAINS FLACCID ON THE RIGHT SIDE.
--- NOTE | 2022-03-02 09:00 | NUR ---
PT CALM QUIET, NONVERBAL. OCCATIONALLY WILL TRY UTTER ONE SYLABLE. PER RD RN, 3 DAYS PRIOR SHE WAS ALMOST NONRESPONSIVE AT ALL. SHE CAN SQUEEZE LEFT HAND FOR ANSWERS ON OCCATION. EYES ARE REACTIVE TO LIGHT, RT IS 8, L IS 6, SHE HAS GAZE MOSTLY FROM LIGHTLY LEFT OF CENTER TO FULL LEFT. DOES NOT APPEAR TO LOOK ON RT. SHE ATTEMPTS A SMILE ON LEFT, RT FACE DROOP. MOVES LEFT HAND AND ARM, LEFT LEG AND FOOT. FLACID FULL RT SIDE. H/R REG, NO MURMUR NOTED, NO TELE. LUNGS CLEAR, RESP EASY UNLABORED. ON R.A/ SUCTION REGULARLY, CLOSE TO HOURLY. BT X4 HYPERACTIVE, NO BM LISTED. VOIDS RIVERA CATH. YELLOW FLUID IN COLLECTION BAG. WE TURN Q2, BED IN LOW POSITION, CALL LITE IN REACH, BED ALARM ON FOR SAFETY
--- NOTE | 2022-03-02 17:18 | NUR ---
NURSE NOTE RE CARE: PT SISTER, KRYSTLE CALLED TODAY. [phone]. SHE WAS ALSO IN ROOM WITH PT YESTERDAY. SHE STATES SHE FEELS GERMAIN'S MAY NOT BE CAPABLE OF CARING FOR HER WITH THE NEW CONDITIONS. SISTER, SHE WOULD BE INTERESTED IN DOING WHAT SHE CAN TO HELP. WOULD LIKE TO SEE IF SHE COULD MOVED TO A SENIOR CARE IN [place] SO CAN BE OF ASSISTANCE. SHE WOULD LIKE CONTACT WITH CARE MANAGEMENT AND CARE PLANNERS TO MAKE SURE SHE IS IN THE LOOP TO HELP HER SISTER. I AM LEAVING MESSAGES ON CARE MANAGEMENT AND PALIATIVE CARE. THANK-YOU.
--- NOTE | 2022-03-02 18:25 | NUR ---
PT CALM MOST OF DAY. STILL SMILES ON LEFT SIDE WHEN COME TO ROOM. STILL SQUEEZES HAND, NOT WITH CERTAINTY. UNABLE TO BE SURE IF 1 OR 2 SQUEEZES TO ANSWER Y/N. SOME TIMES CAN POINT, STILL MOVING LEFT ARM AND LEG. NOTICABLY LESS DROOLING AND LESS SUCTIONING TODAY. DR DID CHANGE IVF TODAY . NO OTHER CONCERNS NOTED. BED IN LOW POSITION, CALL LITE IN REACH, BED ALARM ON FOR SAFETY
[2022-03-03 05:51] LABS: Albumin, Blood 2.6 g/dL (3.4-5.0); Albumin/Globulin Ratio 0.7 (0.8-1.8); Bilirubin, Total 0.6 mg/dL (0.1-1.0); Bun/Creatinine Ratio 22.3 (12.0-20.0); Calcium, Blood 8.4 mg/dL (8.5-10.1); Creatinine, Blood 0.45 mg/dL (0.40-1.00); Globulin, Blood 3.6 g/dL (2.2-4.0); Magnesium, Blood 2.1 mg/dL (1.6-2.4); Phosphorus, Blood 2.7 mg/dL (2.5-4.9); Potassium, Blood 3.1 mmol/L (3.5-5.5); Total Protein, Blood 6.2 g/dL (6.4-8.2)
--- NOTE | 2022-03-03 06:22 | NUR ---
GERMAIN WAS VERY ANIMATED IN THE EVENING. SHE WAS MOVING HER LEFT ARM AND LEG BACK AND FORTH IN COMFORTABLE MANNER. THIS RN BEGAN TO WASH HER FACE WITH A WASHCLOTH, I OFFERED IT TO GERMAIN WHO TOOK THE CLOTH AND BEGAN TO WASH HER FACE PRIMARILY ON THE LEFT. SHE BEGAN SCUBBING ON THE RIGHT SIDE WHEN IT WAS SUGGESTED TO HER. GERMAIN STILL HAS SIGNFICANT SECRETIONS THAT NEED ATTENTION HOURLY WITH MOUTH CARE. SKIN INTACT, TURN Q 2 HOURS
--- NOTE | 2022-03-03 16:18 | NUR ---
MET WITH CYNDIE IN ROOM AT PT BEDSIDE. HE REPORTS THAT NOW THAT HE IS HERE AND SEES THE PT, HE WANTS TO TAKE HER HOME ON HOSPICE TO CARE FOR HER. WE DISCUSS OTHER OPTIONS OF SNF OR PT SISTER, KRYSTLE HAS OFFEREED TO TAKE CARE OF THE PT IN HER HOME IN [place]. WE ALSO DISCUSS PT NEEDS AND THAT THE PT WILL NEED 24 HOUR CARE AND HE REPORTS HE CAN PROVIDE THIS. CYNDIE REPORTS THEY LIVE IN A SINGLE WIDE MOBILE HOME AND HAS ROOM FOR A HOSPITAL BED AND ANY OTHER DME THAT IS NEEDED. WE DISCUSS HOSPICE PHILOSOPHY AND WHAT SERVICES THEY PROVIDE AND HE IS AGREEABLE TO THIS. CYNDIE HAS QUESTIONS ABOUT IS THERE ANYTHING ELSE THAT CAN BE DONE SINCE GERMAIN CANNOT SWALLOW, HE ASKS ABOUT A PIC LINE. WE DISCUSSED THAT ANY IV NUTRITTION IS SHORT TERM, A CUSTOMER ACCOUNTS ADVISOR SOLUTION IS PLACING A FEEDING/PEG TUBE. HE VERBALIZES THAT THE PATIENT DOESNT WANT A CUSTOMER ACCOUNTS ADVISOR FEEDING TUBE AND HE WANTS TO HONOR HER WISHES. PROVIDED EDUCATION THAT SINCE PT IS UNABLE TO SAFELY SWALLOW AND NOW ON CC, ALL OF HER SCHEDULED ORAL MEDICATIONS HAVE BEEN STOPPED, AND COMFORT MEDICATION RDERS HAVE BEEN ORDERED TO MANAGE PAIN, ANXIETY, DIFF SLEEPING ETC, AND HE VU. ADVISES CM WILL BE IN LATER TO TALK TO HIM AND HE FABI. UPDATED MK DIAZ ON THIS CONVERSATION.
--- NOTE | 2022-03-03 18:38 | NUR ---
SHIFT SUMMARY- PT IS ALERT, PLESANT AND COOPERATIVE. SHE IS NONVERBAL AFTER CVA. SHE WENT FOR A BARIUM STUDY THIS MORNING. SHE WAS TRANSITIONED TO COMFORT CARE THIS AFTERNOON. AT BEDSIDE THIS SHIFT. HER RIVERA IS PATIENT AND DRAINING. HER BED IS IN THE LOW POSITION. CALL LIGHT IS WITHIN REACH.
--- NOTE | 2022-03-03 23:54 | NUR ---
CALLED HOSPITALIST INFORMED HIM THAT PT APPEARS AGITATED AND RESTLESS. I REQUESTED AN IV MEDICATION FOR ANXIETY PT IS NPO. NEW ORDERS IN EMAR
--- NOTE | 2022-03-04 04:26 | NUR ---
SHIFT SUMMARY ADMITTED FOR CVA. DNR CODE. NOW COMFORT CARE. PLAN IS FOR DC HOME ON HOSPICE. RIVERA IN PLACE. POWERGLIDE IN LEFT AC. NPO, FAILED BARIUM SWALLOW. Q2 TURNS. ATROPINE GIVEN FOR EXCESSIVE SECRETIONS. ANXIETY MEDICATION GIVEN FOR RESTLESSNESS AND AGITATION EFFECTIVELY.
--- NOTE | 2022-03-04 16:48 | NUR ---
pt comfortable reveiw of pt needs with nursing, oral care given tolerated and ice chip. plan is home with hospice.
--- NOTE | 2022-03-04 18:27 | NUR ---
SHIFT SUMMARY PT RESTING COMFORTABLY IN BED T/O SHIFT. ABLE TO ANSWER OCC. BY NODDING HEAD YES OR NO, OTHERWISE NONVERBAL. CALL LIGHT W/IN REACH. DENIES PAIN/ANX. PLAN FOR DC HOME W/ HOSPICE
--- NOTE | 2022-03-05 05:17 | NUR ---
SHIFT SUMMARY 57 YR F ON COMFORT CARE. DNR. NO ACUTE CHANGES THIS SHIFT. PT APPEARED TO BE AGITATED OR UNCOMFORTABLE MID WAY THROUGHT THIS SHIFT. THIS NURSE WAS UNABLE TO GET PT TO ANSWER QUESTION BY NODDING HER HEAD OR SQUEEZING MY HAND. SHE WAS MEDICATED FOR ANXIETY PER EMAR ONE TIME THIS SHIFT. SHE SETTLED DOWN AND APPEARED TO REST PEACEFULLY FOR REST OF THE SHIFT.
[2022-03-05] MEDS ORDERED: ACET120S PR (11:27)
[2022-03-05] MEDS ORDERED: ATROPINE SULFATE2 M1 SL (11:29)
[2022-03-05] MEDS ORDERED: Ativan1 MG PO (11:31)
[2022-03-05] MEDS ORDERED: MORP20L SL (11:34)
[2022-03-05] MEDS ORDERED: PHENERGAN25 MG PR (11:35)
--- NOTE | 2022-03-05 13:53 | NUR ---
DISCHARGE HOME PT DISCHARGED HOME VIA EMS/GURNEY. PT ALERT AND AGREEABLE WITH HEAD SHAKE TO GO. POWER GLIDE REMOVED. RIVERA LEFT IN. CONTINUE POC.
--- NOTE | 2022-03-05 14:38 | NUR ---
PT TO BE DCD TODAY TO GO HOME WITH HER ON HOSPICE. TRANSPORTATION HERE, PT IS SMILING AND ANXIOUS TO GO HOME.
== END 2022-03-05 13:53 | disposition hospice, inpatient (51) | DRG 65 ==
LOC: ER 12:40 → PCU 12:41 → MEDS 02-26 13:02 → PCU 02-26 13:03 → MEDS 02-27 23:16
PROVIDERS: Emergency Medicine; Internal Medicine; ADMIT Family Medicine
DX: I63.512 Cerebral infarction due to unspecified occlusion or stenosis of left middle cerebral artery (principal); E87.0 Hyperosmolality and hypernatremia; G81.91 Hemiplegia, unspecified affecting right dominant side; E87.20 Acidosis, unspecified; Z51.5 Encounter for palliative care; G35 Multiple sclerosis; M79.7 Fibromyalgia; I10 Essential (primary) hypertension; F31.9 Bipolar disorder, unspecified; M48.061 Spinal stenosis, lumbar region without neurogenic claudication; G40.909 Epilepsy, unspecified, not intractable, without status epilepticus; F17.210 Nicotine dependence, cigarettes, uncomplicated; D72.828 Other elevated white blood cell count; E87.6 Hypokalemia; E83.39 Other disorders of phosphorus metabolism; Z98.51 Tubal ligation status; Z90.710 Acquired absence of both cervix and uterus; Z98.890 Other specified postprocedural states; Z88.0 Allergy status to penicillin; Z88.1 Allergy status to other antibiotic agents; Z88.2 Allergy status to sulfonamides; Z88.6 Allergy status to analgesic agent; Z91.040 Latex allergy status; Z79.2 Long term (current) use of antibiotics; Z79.899 Other long term (current) drug therapy
CPT/HCPCS: 36415; 51702; 70450; 71045; 74230; 80048; 80053; 80061; 80069; 81001; 82803; 83605; 83735; 84100; 84145; 84484; 85025; 87040; 87077; 87086; 87186; 92526; 92610; 92611; 93005; 93010; 93306; 93880; 93971; 94760; 96365; 96372; 96374; 96375; 96376; 97110; 97112; 97162; 97166; 97530; 99285-25; A9270; C1751; G0378; J0360; J1650; J1956; J2060; J7060; J7070; J7120